=== PATIENT | female | born 1955 | race Caucasian/White ===

== ENCOUNTER → 2017-01-30 | Outpatient (CLI) | payer BC ==
[2017-01-30 07:34] LABS: BASOPHILS % (AUTO) 1 % (0-2); EOSINOPHILS # (AUTO) 0.1 10^3uL; EOSINOPHILS % (AUTO) 2 % (0-4); LYMPHOCYTES # (AUTO) 2.3 X10^3; MEAN CORPUSCULAR HEMOGLOBIN 31.7 PG (26.0-34.0); MEAN CORPUSCULAR HGB CONC 33.6 g/dL (31.0-37.0); MEAN CORPUSCULAR VOLUME 94 FL (80-100); MEAN PLATELET VOLUME 11.4 FL (6.0-9.5); MONOCYTES # (AUTO) 0.6 X10^3; MONOCYTES % (AUTO) 10 % (3-11); NEUTROPHILS # (AUTO) 2.9 X10^3; NEUTROPHILS % (AUTO) 48 % (51-67); PLATELET COUNT 250 10^3uL (150-450); WHITE BLOOD COUNT 5.94 10^3uL (4.0-11.0)
[2017-01-30 07:51] LABS: ALBUMIN 4.1 g/dL (3.4-5.0); ALKALINE PHOSPHATASE 82 U/L (38-126); ANION GAP 13.3 MEQ/L (3-15); BUN/CREATININE RATIO 26 (10-20); CALCULATED IONIZED CALCIUM 4.1 mg/dL (3.8-4.6); TOTAL PROTEIN 7.3 g/dL (6.4-8.5)
--- NOTE | 2017-01-30 10:17 | Diagnostic Imaging Report ---
INDICATION: Neck pain. TECHNIQUE: AP, oblique, and lateral views of the cervical spine were obtained. COMPARISON: There is no prior study for comparison. FINDINGS: There is disc space narrowing at C5-6. There is slight retrolisthesis of C5 on C6 by about 2 mm. There is slight anterolisthesis of C4 on C5. The remaining disc levels are unremarkable. There is mild diffuse facet joint degenerative change. IMPRESSION: There is disc space narrowing at C5-6 with mild retrolisthesis. There is slight anterolisthesis of C4 on C5. There is mild diffuse facet degenerative change. There is no acute appearing bony abnormality. Dictated by: Dictated on workstation # [id number]
== END ==
LOC: RAD 07:04
PROVIDERS: ATTEND Family Medicine
DX: Z00.00 Encounter for general adult medical examination without abnormal findings (principal)
CPT/HCPCS: 36415; 72050; 80053; 80061; 83036; 84436; 84443; 85025